=== PATIENT | female | born 1995 | race Caucasian/White ===

== ENCOUNTER 2020-03-14 18:52 | Emergency (ER) | payer OTHER ==
[~2020-03-14] VITALS: Ht 157.5 cm; Wt 49.9 kg
[2020-03-14] MEDS ORDERED: BIRTH CONTROL PO (19:28)
[2020-03-14] MEDS ORDERED: IBUPROFEN 600600 M1 PO (20:20)
[2020-03-14 20:55] VITALS: BP 116/73
== END 2020-03-14 20:59 | disposition home or self-care (01) ==
LOC: ER 18:52 → EDBD 18:52 → ER 20:55
DX: S70.312A Abrasion, left thigh, initial encounter (principal); T14.8XXA Other injury of unspecified body region, initial encounter; V89.2XXA Person injured in unspecified motor-vehicle accident, traffic, initial encounter; Y93.89 Activity, other specified; Y92.415 Exit ramp or entrance ramp of street or highway as the place of occurrence of the external cause; Y99.8 Other external cause status